=== PATIENT | male | born 1995 | race Caucasian/White ===

== ENCOUNTER 2023-01-06 09:50 | Outpatient (CLI) | payer BC | END 2023-01-06 09:51 | disposition home or self-care (01) | LOC: ULT 09:50 | PROVIDERS: ATTEND Internal Medicine Gastroenterology | DX: R10.9 Unspecified abdominal pain (principal); K21.9 Gastro-esophageal reflux disease without esophagitis; U07.1 COVID-19; G47.10 Hypersomnia, unspecified | CPT/HCPCS: 76700 ==